=== PATIENT | female | born 1945 | race Caucasian/White ===

== ENCOUNTER 2018-03-31 06:56 | Day surgery (SDC) | payer MEDICARE, BC ==
[~2018-03-31 06:56] MED LIST: Dextrose 5%-0.45% NaCl 1,000 ML IV SCH; Midazolam 1 MG/ML 2 ML SDV ONE; Sodium Chloride 0.9% 10 ML Syringe FLUSH PRN; fentaNYL 100 MCG/2 ML SDV ONE
[2018-03-31] MEDS ORDERED: fentaNYL 100 MCG/2 ML SDV IV ONE ×3 (06:57→08:07)
[2018-03-31] MEDS ORDERED: Midazolam 1 MG/ML 2 ML SDV IV ONE ×7 (06:57→08:17)
--- NOTE | 2018-03-31 13:02 | OR ---
DATE: 03/31/2018 PROCEDURE: Total colonoscopy. INSTRUMENT USED: PCF-H190 DL Olympus video colonoscope. PREMEDICATIONS: Fentanyl 100 mcg intravenous, Versed 4 mg intravenous. Nasal O2 cannula. The procedure was done under pulse oximetry, BP recording, and cardiac care nurse. INDICATION: Screening colonoscopic examination is done for detection of any polypoid lesions and removal, endoscopic hemostasis therapy if needed. DESCRIPTION OF PROCEDURE: Initial rectal exam was unremarkable. Rigid anoscopy was normal. The colonoscope was passed with relative ease up to the ileocecal area. Photographs were taken of the normal-appearing cecum, identified by double- bulged ileocecal folds, prominent. No bleeding was noted from any of the visualized areas at the commencement of the examination. Few scattered diverticula were noted in the distal left colon. The examination was compromised in quite a few areas due to the presence of solid and liquid fecal material that could not be aspirated clear, bowel preparation of [place] scale 1. No stricture. No vascular ectasia. No large isolated ulcerations seen. No evidence of diffuse inflammatory bowel disease in the form of friability, contact bleeding, or ulcerations. No polyp or tumor mass identified. Probing the proximal sides of folds and flexures, using adequate distention and clearing of the stool material, withdrawal of the scope was made, cecum to rectum time over 6 minutes. No bleeding was noted from any of the visualized areas at the completion of examination. IMPRESSION: Diverticulosis. The patient tolerated the procedure well. [facility] /[id number]
[2018-03-31 13:19] VITALS: BP 109/57
== END 2018-03-31 10:15 | disposition home or self-care (01) ==
LOC: DL.ENDO 06:56
PROVIDERS: ATTEND Internal Medicine Gastroenterology
DX: Z12.11 Encounter for screening for malignant neoplasm of colon (principal); K57.30 Diverticulosis of large intestine without perforation or abscess without bleeding; E66.09 Other obesity due to excess calories; E78.5 Hyperlipidemia, unspecified; F41.1 Generalized anxiety disorder; Z88.8 Allergy status to other drugs, medicaments and biological substances
CPT/HCPCS: 45378; J2250; J3010; J7042

== ENCOUNTER 2023-11-27 08:48 | Day surgery (SDC) | payer MEDICARE, BC ==
[2023-11-27] MEDS: Sodium Chloride 0.9% 10 ML Syringe FLUSH PRN (09:08)
[2023-11-27] MEDS ORDERED: Acetaminophen/Codeine 300-30 MG Tab PO PRN (09:15)
[2023-11-27] MEDS ORDERED: Acetaminophen 325 MG Tab PO PRN (09:15)
[2023-11-27] MEDS ORDERED: Ondansetron 4 MG/2 ML SDV IVPUSH PRN (09:15)
[2023-11-27] MEDS: Proparacaine 0.5% Ophth Soln 15 ML Bottle EYELF ONE ×2 (09:39→10:15)
[2023-11-27] MEDS: Moxifloxacin 0.5% Ophth Soln 3 ML Bottle EYELF ONE (09:40)
[2023-11-27] MEDS: Povidone-Iodine 5% Sterile Ophth Soln 30 ML Bottle EYELF ONE ×2 (09:41→10:10)
[2023-11-27] MEDS: Tropicamide 1% Ophth Soln 15 ML Bottle EYELF ONE (09:42)
[2023-11-27] MEDS: Timolol Maleate 0.5% Ophth Soln 5 ML Bottle EYELF ONE (09:43)
[2023-11-27] MEDS: Phenylephrine 10% Ophth Soln 5 ML Bot EYELF ONE (09:43)
[2023-11-27] MEDS: Cataract Ophth Solution EYELF ONE (09:44)
[2023-11-27] MEDS: Diclofenac Sodium 0.1% Ophth Soln 5 ML Bottle EYELF ONE (10:10)
[2023-11-27] MEDS: Dexamethasone/Neomycin/Polymyxin B Ophth Oint 3.5 GM Tube EYELF ONE (10:10)
[2023-11-27] MEDS: Apraclonidine 0.5% Ophth Soln 5 ML Bot EYELF ONE (10:10)
[2023-11-27] MEDS: Lidocaine 1% 30 ML SDV ONE (10:18)
[2023-11-27] MEDS: Vancomycin 500 MG SDV EYELF ONE (10:19)
[2023-11-27 11:04] VITALS: BP 108/54; PULSE 64
== END 2023-11-27 10:59 | disposition home or self-care (01) ==
LOC: DL.SDS 08:48
PROVIDERS: ATTEND Ophthalmology
DX: H25.812 Combined forms of age-related cataract, left eye (principal); I10 Essential (primary) hypertension; E78.5 Hyperlipidemia, unspecified; K21.9 Gastro-esophageal reflux disease without esophagitis; E66.3 Overweight; Z79.899 Other long term (current) drug therapy; Z79.82 Long term (current) use of aspirin; Z88.8 Allergy status to other drugs, medicaments and biological substances; Z68.30 Body mass index [BMI] 30.0-30.9, adult
CPT/HCPCS: 66984; A9270; J3370; V2632; J3490

== ENCOUNTER 2023-12-04 08:51 | Day surgery (SDC) | payer MEDICARE, BC ==
[2023-12-04] MEDS ORDERED: Acetaminophen 325 MG Tab PO PRN (09:15)
[2023-12-04] MEDS ORDERED: Proparacaine 0.5% Ophth Soln 15 ML Bottle EYELF ONE (09:15)
[2023-12-04] MEDS ORDERED: Ondansetron 4 MG/2 ML SDV IVPUSH PRN (09:15)
[2023-12-04] MEDS ORDERED: Timolol Maleate 0.5% Ophth Soln 5 ML Bottle EYELF ONE (09:15)
[2023-12-04] MEDS ORDERED: Moxifloxacin 0.5% Ophth Soln 3 ML Bottle EYELF ONE (09:15)
[2023-12-04] MEDS ORDERED: Acetaminophen/Codeine 300-30 MG Tab PO PRN (09:15)
[2023-12-04] MEDS ORDERED: Cataract Ophth Solution EYELF ONE (09:15)
[2023-12-04] MEDS ORDERED: Tropicamide 1% Ophth Soln 15 ML Bottle EYELF ONE (09:15)
[2023-12-04] MEDS ORDERED: Povidone-Iodine 5% Sterile Ophth Soln 30 ML Bottle EYELF ONE (09:15)
[2023-12-04] MEDS ORDERED: Phenylephrine 10% Ophth Soln 5 ML Bot EYELF ONE (09:15)
[2023-12-04] MEDS: Sodium Chloride 0.9% 10 ML Syringe FLUSH PRN (09:44)
[2023-12-04] MEDS: Proparacaine 0.5% Ophth Soln 15 ML Bottle EYERT ONE ×2 (10:06→10:42)
[2023-12-04] MEDS: Moxifloxacin 0.5% Ophth Soln 3 ML Bottle EYERT ONE (10:07)
[2023-12-04] MEDS: Povidone-Iodine 5% Sterile Ophth Soln 30 ML Bottle EYERT ONE ×2 (10:07→10:42)
[2023-12-04] MEDS: Tropicamide 1% Ophth Soln 15 ML Bottle EYERT ONE (10:08)
[2023-12-04] MEDS: Phenylephrine 10% Ophth Soln 5 ML Bot EYERT ONE (10:08)
[2023-12-04] MEDS: Timolol Maleate 0.5% Ophth Soln 5 ML Bottle EYERT ONE (10:09)
[2023-12-04] MEDS: Cataract Ophth Solution EYERT ONE (10:10)
[2023-12-04] MEDS: Diclofenac Sodium 0.1% Ophth Soln 5 ML Bottle EYERT ONE (10:42)
[2023-12-04] MEDS: Apraclonidine 0.5% Ophth Soln 5 ML Bot EYERT ONE (10:42)
[2023-12-04] MEDS: Lidocaine 1% 30 ML SDV ONE (10:47)
[2023-12-04] MEDS: Dexamethasone/Neomycin/Polymyxin B Ophth Oint 3.5 GM Tube EYERT ONE (10:47)
[2023-12-04] MEDS: Vancomycin 500 MG SDV EYERT ONE (10:47)
[2023-12-04 11:29] VITALS: BP 102/60; PULSE 67
== END 2023-12-04 11:28 | disposition home or self-care (01) ==
LOC: DL.SDS 08:51
PROVIDERS: ATTEND Ophthalmology
DX: H25.811 Combined forms of age-related cataract, right eye (principal); I10 Essential (primary) hypertension; E66.3 Overweight; Z79.899 Other long term (current) drug therapy; Z79.2 Long term (current) use of antibiotics; Z79.82 Long term (current) use of aspirin; Z68.30 Body mass index [BMI] 30.0-30.9, adult; Z88.8 Allergy status to other drugs, medicaments and biological substances
CPT/HCPCS: A9270-GY; J3370; J3490; V2632